=== PATIENT | male | born 1985 | race Caucasian/White ===

== ENCOUNTER 2022-03-06 22:11 | Emergency (ER) | payer OTHER ==
[~2022-03-06] VITALS: Ht 170.2 cm; Wt 97.5 kg
[2022-03-06 22:11] VITALS: BP 124/84
--- NOTE | 2022-03-06 22:11 | NUR ---
PT ROBERT ALS. TAKEN TO BED 11
--- NOTE | 2022-03-06 22:15 | NUR ---
PT BIBA FOR CP, REPORT GIVEN BY EMS, PT STARTED FEELING CP WHILE WATCHING TV, PT DROVE TO URGENT CARE, URGENT CARE ADMINISTERED 325 MG ASPIRIN AND 0.4MG NITRO SL. PT STATES HIS PAIN REDUCE AFTER MEDICATIONS WERE GIVEN. DENIES ANY MEDICAL HISTORY. NKDA.
--- NOTE | 2022-03-06 22:49 | NUR ---
Dr. Fowler examining patient.
[2022-03-06 23:01] LABS: BASOPHILS % (AUTO) 0.4 % (0.0-2.0); EOSINOPHILS # (AUTO) 0.1 K/uL (0-0.4); EOSINOPHILS % (AUTO) 1.2 % (0.0-4.0); HEMATOCRIT 41.4 % (36-52); HEMOGLOBIN 14.4 g/dL (12.0-18.0); LYMPHOCYTES # (AUTO) 1.9 K/uL (2.0-11.5); LYMPHOCYTES % (AUTO) 19.5 % (20.5-51.1); MEAN CORPUSCULAR HEMOGLOBIN 30 pg (27-31); MEAN CORPUSCULAR HGB CONC 35 g/dL (33-37); MEAN CORPUSCULAR VOLUME 85.9 fL (80-94); MONOCYTES # (AUTO) 0.6 K/uL (0.8-1.0); MONOCYTES % (AUTO) 6.5 % (1.7-9.3); NEUTROPHILS # (AUTO) 7.2 K/uL (1.8-7.7); NEUTROPHILS % (AUTO) 72.4 % (42.2-75.2); PLATELET COUNT (AUTO) 333 K/uL (140-450); RED BLOOD CELL COUNT(AUTO) 4.82 MIL/uL (4.20-6.10); RED CELL DISTRIBUTION WIDTH 13.4 % (11.6-13.7)
[2022-03-06 23:26] LABS: ALBUMIN 3.4 g/dL (3.4-5.0); ANION GAP 3.7 (8-16); ASPARTATE AMINOTRANSFERASE 89 U/L (15-37); CARBON DIOXIDE 27.7 mmol/L (21-32); CHLORIDE 98 mmol/L (98-107); CREATININE 1.1 mg/dL (0.6-1.3); GFR ARICAN-AMERICAN 97 mL/min (>90); GLUCOSE 113 mg/dL (74-106); POTASSIUM 3.4 mmol/L (3.5-5.1); SODIUM SERUM 126 mmol/L (136-145); TOTAL BILIRUBIN 0.8 mg/dL (0.0-1.0); UREA NITROGEN, BLOOD 15 mg/dL (7-18)
[2022-03-06] MEDS ORDERED: METOCLOPRAMIDE 10 MG/2 ML INJ VIAL IVP ONE (23:55)
[2022-03-06] MEDS ORDERED: MORPHINE SULFATE 4 MG/ML SYR IVP ONE (23:55)
[2022-03-06] MEDS ORDERED: FAMOTIDINE 20 MG/2 ML VIAL IVP ONE (23:55)
[2022-03-06] MEDS ORDERED: ALUMINUM HYD/MAG/SIMETHICONE 30 ML UDC PO ONE (23:55)
--- NOTE | 2022-03-07 | NUR ---
PT GUARDING TO HIS CHEST, STATES CP HAS RETURNED SEVERE BEFORE. 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
--- NOTE | 2022-03-07 01:00 | NUR ---
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
--- NOTE | 2022-03-07 01:00 | NUR ---
REPEAT TROPONIN AND EKG COMPLETED AND GIVEN TO DR VARGAS
[2022-03-07] MEDS ORDERED: NACL 0.9% 1,000 ML IV ONE (01:15)
[2022-03-07] MEDS ORDERED: FAMO20TA99 PO (02:13)
[2022-03-07] MEDS ORDERED: ALUM355S59 PO (02:13)
--- NOTE | 2022-03-07 02:42 | NUR ---
Patient discharged with v/s stable. Written and verbal after care instructions given and explained. Patient alert, oriented and verbalized understanding of instructions. Ambulatory with steady gait. All questions addressed prior to discharge. ID band removed. Patient advised to follow up with PMD. Rx SENT TO PHARMACY. Patient educated on indication of medication including possible reaction and side effects. Opportunity to ask questions provided and answered.
[2022-03-07 02:43] VITALS: BP 112/67
--- NOTE | 2022-03-12 14:51 | NUR ---
LATE ENTRY- IV NS DISCONTINUED AT 0242.
== END 2022-03-07 02:42 | disposition home or self-care (01) ==
LOC: MED 22:11
DX: R07.2 Precordial pain (principal); E87.1 Hypo-osmolality and hyponatremia; R10.13 Epigastric pain; Z79.899 Other long term (current) drug therapy
CPT/HCPCS: 36415; 71045; 80053; 84484; 85025; 93005; 96361; 96374; 96375; 99285; J2270; J2765; J3490; J7030